=== PATIENT | male | born 1990 | race Caucasian/White ===

== ENCOUNTER 2022-10-01 10:01 | Emergency (ER) | payer MEDICAID ==
[~2022-10-01] VITALS: Ht 165.1 cm; Wt 72.7 kg
[2022-10-01 11:44] VITALS: BP 120/72
== END 2022-10-01 11:48 | disposition home or self-care (01) ==
LOC: EMS 10:08
DX: F41.9 Anxiety disorder, unspecified (principal); Z90.49 Acquired absence of other specified parts of digestive tract
CPT/HCPCS: 99281; Z7502